=== PATIENT | female | born 1995 | race American Indian/Alaskan Native ===

== ENCOUNTER 2022-04-30 22:10 | Emergency (ER) | payer MEDICAID ==
[2022-04-30] MEDS ORDERED: SODIUM CHLORIDE 0.9% 1000 ML 1,000 ML IV ONE (22:53)
[2022-04-30] MEDS ORDERED: LORazepam 2 MG/ML VIAL IV ONE (22:53)
--- NOTE | 2022-04-30 23:00 | Emergency Department Report ---
History of Present Illness - General Chief Complaint: Overdose Stated Complaint: SUICIDAL Time Seen by Provider: 04/30/22 22:30 Source: patient, EMS Mode of arrival: Ambulatory Limitations: No Limitations - History of Present Illness Initial Comments: 26-year-old female who came in with overdose on ecstasy 7 to 8 tablets about 45 minutes before presentation. When asked she took the drugs to have some form but also to hurt her self. Patient noted some anxiety with panic attack as well. She however denies any chest pain or shortness of breath. She denies any homicidal ideation. No other modifying or associated factors reported. MD Complaint: intentional overdose - Related Data Home Medications Medication Instructions Recorded Confirmed Last Taken No Known Home Medications [No 05/01/22 05/01/22 Unknown Reported Home Medications] Allergies Allergy/AdvReac Type Severity Reaction Status Date / Time No Known Allergies Allergy Verified 04/30/22 23:16 ED Review of Systems ROS: Stated complaint: SUICIDAL Other details as noted in HPI Comment: All other systems reviewed and negative Endocrine: denies: intolerance to cold, intolerance to heat Psychiatric: anxiety ED Past Medical Hx - Medications Home Medications: Home Medications Medication Instructions Recorded Confirmed Last Taken Type No Known Home Medications [No 05/01/22 05/01/22 Unknown History Reported Home Medications] ED Physical Exam - General Limitations: No Limitations General appearance: alert, in no apparent distress - Head Head exam: Present: normal inspection - Eye Eye exam: Absent: normal appearance Pupils: Absent: normal accommodation - ENT ENT exam: Present: normal exam, normal orophraynx, mucous membranes dry - Neck Neck exam: Present: normal inspection, full ROM. Absent: tenderness - Respiratory Respiratory exam: Present: normal lung sounds bilaterally. Absent: respiratory distress, chest wall tenderness, accessory muscle use - Cardiovascular Cardiovascular Exam: Present: regular rate, normal rhythm, normal heart sounds - GI/Abdominal GI/Abdominal exam: Present: soft, normal bowel sounds. Absent: distended, tenderness - Extremities Exam Extremities exam: Present: normal inspection, full ROM, normal capillary refill. Absent: tenderness, pedal edema - Back Exam Back exam: Absent: tenderness - Neurological Exam Neurological exam: Present: alert, oriented X3 - Psychiatric Psychiatric exam: Present: agitated, anxious - Skin Skin exam: Present: warm, normal color ED Course Vital Signs 04/30/22 04/30/22 04/30/22 22:14 22:30 22:31 Temperature 98 F Pulse Rate 140 H 74 Respiratory 16 18 15 Rate Blood Pressure 105/49 Blood Pressure 117/86 [Right] O2 Sat by Pulse 100 98 Oximetry 04/30/22 04/30/22 04/30/22 22:45 23:01 23:15 Temperature Pulse Rate 101 H 108 H 85 Respiratory 13 14 12 Rate Blood Pressure 116/77 118/69 120/78 Blood Pressure [Right] O2 Sat by Pulse 100 100 100 Oximetry 04/30/22 04/30/22 05/01/22 23:30 23:45 00:01 Temperature Pulse Rate 94 H 95 H 98 H Respiratory 14 13 15 Rate Blood Pressure 115/76 113/77 112/74 Blood Pressure [Right] O2 Sat by Pulse 100 100 100 Oximetry 05/01/22 05/01/22 05/01/22 00:15 00:30 00:45 Temperature Pulse Rate 79 76 74 Respiratory 16 18 16 Rate Blood Pressure 112/74 117/79 127/85 Blood Pressure [Right] O2 Sat by Pulse 97 100 100 Oximetry 05/01/22 05/01/22 05/01/22 01:00 01:15 01:30 Temperature Pulse Rate 69 70 75 Respiratory 15 17 16 Rate Blood Pressure 125/80 122/78 123/79 Blood Pressure [Right] O2 Sat by Pulse 100 100 100 Oximetry 05/01/22 05/01/22 05/01/22 01:45 02:00 02:31 Temperature Pulse Rate 82 118 H 88 Respiratory 12 11 L 13 Rate Blood Pressure 111/77 102/70 111/77 Blood Pressure [Right] O2 Sat by Pulse 100 Oximetry 05/01/22 05/01/22 05/01/22 02:45 03:15 03:31 Temperature Pulse Rate 97 H 105 H 82 Respiratory 13 14 13 Rate Blood Pressure 111/77 102/70 117/91 Blood Pressure [Right] O2 Sat by Pulse Oximetry 05/01/22 05/01/22 05/01/22 03:45 04:01 09:14 Temperature 98.3 F Pulse Rate 104 H 94 H 103 H Respiratory 14 13 16 Rate Blood Pressure 117/91 117/91 96/51 Blood Pressure 96/51 [Right] O2 Sat by Pulse 100 Oximetry 05/01/22 10:39 Temperature Pulse Rate Respiratory Rate Blood Pressure Blood Pressure 111/64 [Right] O2 Sat by Pulse Oximetry ED Medical Decision Making - Lab Data Result diagrams: 04/30/22 23:09 04/30/22 23:24 - Medical Decision Making Overdose on ecstasy--we will go ahead and start some IV hydration and give 1 mg of Ativan for symptomatic relief. We will check/order routine labs including thyroid profile, CBC, CMP, UA and drug screen--for any infectious or electrolyte abnormality Critical care attestation.: If time is entered above; I have spent that time in minutes in the direct care of this critically ill patient, excluding procedure time. ED Disposition Clinical Impression: Overdose of ecstasy Disposition: [address] [place] [address] Is pt being admited?: No Does the pt Need Aspirin: No Condition: Stable Additional Instructions: OUTPATIENT MENTAL HEALTH RESOURCES [facility], [facility] Cristopher Albert MD: [address] [place] [address] [place] [address] [facility]: [employer] [address] [place] [address] [place] [address] [phone] [facility]: [facility]: [address] [facility] [address] [place] [address] [facility] [id number] [facility]: Enrike Tamez MD: [address] [id number] [facility]: [address] [place], [place] [id number] [phone] IN CRISIS AND ACCESS LINE: Referrals: PRIMARY CAREMD [Primary Care Provider] - 3-5 Days
[2022-04-30 23:19] LABS: Basophils % (Auto) 0.6 % (0.0-1.8); Eosinophils % (Auto) 0.1 % (0.0-4.3); Hematocrit 49.5 % (30.3-42.9); Hemoglobin 16.3 gm/dl (10.1-14.3); Lymphocytes # (Auto) 2.5 K/mm3 (1.2-5.4); Mean Corpuscular HGB Conc 33 % (30-34); Mean Corpuscular Volume 95 fl (79-97); Monocytes # (Auto) 0.6 K/mm3 (0.0-0.8); Platelet Count 320 K/mm3 (140-440); Red Blood Count 5.21 M/mm3 (3.65-5.03); Red Cell Distribution Width 13.7 % (13.2-15.2)
[2022-04-30 23:31] LABS: INR 0.93 (0.87-1.13)
[2022-04-30] MEDS ORDERED: MIDAZOLAM 2 MG/2 ML INJ IV NR (23:45)
[2022-04-30 23:55] LABS: Alanine Aminotransferase 9 units/L (7-56); Albumin 4.7 g/dL (3.9-5); Blood Urea Nitrogen 6 mg/dL (7-17); Hemolysis Index 9
[2022-05-01 00:14] LABS: BUN/Creatinine Ratio 9
--- NOTE | 2022-05-01 03:43 | XRay Report ---
XR chest 1V ap INDICATION / CLINICAL INFORMATION: Overdose. COMPARISON: None available. FINDINGS: SUPPORT DEVICES: None. HEART /PULMONARY VASCULATURE: No significant abnormality. LUNGS / PLEURA: No significant pulmonary or pleural abnormality. No pneumothorax. ADDITIONAL FINDINGS: No significant additional findings. IMPRESSION: 1. No acute findings. Signer Name: Boaz Ramos MD Signed: 05/01/2022 3:38 AM Workstation Name: [id number]
[2022-05-01 05:14] LABS: Cocaine Screen,Urine Negative; Methadone Screen,Urine Negative; Opiate Screen,Urine Negative
[2022-05-01 05:21] LABS: HCG Qualitative,Urine Negative (Negative)
[2022-05-01 05:37] LABS: Amphetamine Screen,Urine Positive; Benzodiazepines Screen,Urine Positive; Cannabinoid Screen,Urine Positive
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
[2022-05-01] MEDS ORDERED: SERTRALINE 25 MG TAB PO ONE (10:20)
[2022-05-01 10:40] VITALS: BP 111/64
[2022-05-01] MEDS ORDERED: SERTRALINE 25 MG TAB PO SCH (11:00)
[2022-05-01] MEDS ORDERED: traZODone 50 MG TAB PO SCH (22:00)
--- NOTE | 2022-05-02 08:51 | Electrocardiograph Report ---
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
== END 2022-05-01 12:10 ==
LOC: EEVIPCON 22:10 → ED 22:10
DX: R45.851 Suicidal ideations (principal); T43.642A Poisoning by ecstasy, intentional self-harm, initial encounter; Y92.89 Other specified places as the place of occurrence of the external cause; Z20.822 Contact with and (suspected) exposure to COVID-19
CPT/HCPCS: 36415; 71045; 80053; 80307; 81025; 84484; 84703; 85025; 85610; 93005; 96361; 96374; 99285; J2250; J7030; U0003; 80320; G0480